=== PATIENT | male | born 1995 | race Two or more races ===

== ENCOUNTER 2019-01-23 04:10 | Emergency (ER) | payer SELFPAY ==
[~2019-01-23] VITALS: Ht 170.2 cm; Wt 81.6 kg
[2019-01-23 05:54] LABS: Basophils # (auto) 0.1 uL; Basophils % (auto) 0.7 % (0.0-2.0); Eosinophils # (auto) 1.3 uL; Eosinophils % (auto) 9.3 % (0.0-7.0); Hematocrit 49.1 % (41.0-53.0); Hemoglobin 16.4 g/dL (13.5-17.5); Lymphocytes # (auto) 2.6 uL; Lymphocytes % (auto) 18.5 % (10.0-50.0); Mean Corpuscular Hemoglobin 29.6 pg (28.0-32.0); Mean Corpuscular Hgb Conc. 33.4 g/dL (32.0-36.0); Mean Corpuscular Volume 88.6 fL (80.0-100.0); Monocytes # (auto) 1.1 uL; Monocytes % (auto) 7.9 % (0.0-12.0); Neutrophils % (auto) 63.6 % (37.0-80.0); Nucleated Red Blood Cells % 0.1 %; Platelet Count (auto) 256 10^3/uL (140-450); Red Blood Cells 5.55 10^6/uL (4.5-5.90); Red Cell Distribution Width 13.3 % (11.8-14.3); White Blood Cell 14.2 10^3/uL (4.4-10.8)
[2019-01-23 06:09] LABS: Albumin 4.9 g/dL (3.4-5.0); Calcium 10.2 mg/dL (8.5-10.1); Potassium 4.1 mmol/L (3.5-5.1)
[2019-01-23 06:12] LABS: BUN/Creatinine Ratio 25.8; Total Protein 8.3 g/dL (6.4-8.2)
[2019-01-23] MEDS ORDERED: SODIUM CHLORIDE 0.9% 1,000 ML IV ONE (07:16)
[2019-01-23 09:10] LABS: Alcohol, Urine < 3.0 mg/dL (0-5); Amphetamine Screen, Urine POSITIVE (NEGATIVE); Barbiturate Scree,Urine NEGATIVE (NEGATIVE); Benzodiazephine Screen, Urine NEGATIVE (NEGATIVE); Cannabinoid Screen, Urine POSITIVE (NEGATIVE); Cocaine Screen, Urine NEGATIVE (NEGATIVE); Opiate Scree,Urine NEGATIVE (NEGATIVE); Phencyclidine Screen, Urine NEGATIVE (NEGATIVE)
[2019-01-23 09:22] LABS: Urine Bacteria NONE SEEN /hpf (None Seen); Urine Blood Negative /uL (Negative); Urine Mucus FEW (None Seen); Urine Specific Gravity 1.035 (1.001-1.035); Urine WBC 1 /hpf (0 - 3)
[2019-01-23 10:59] VITALS: BP 135/65
== END 2019-01-23 13:06 | disposition home or self-care (01) ==
LOC: ER 04:10
DX: K52.9 Noninfective gastroenteritis and colitis, unspecified (principal); F15.10 Other stimulant abuse, uncomplicated; F12.10 Cannabis abuse, uncomplicated
CPT/HCPCS: 36415; 80053; 80307; 81001; 83735; 85025; 99283; J7030; 96360

== ENCOUNTER 2024-04-07 11:24 | Emergency (ER) | payer MEDICAID, OTHER ==
[~2024-04-07] VITALS: Ht 177.8 cm; Wt 92.7 kg
[2024-04-07] MEDS: KETOROLAC TROMETH 30 MG/ML 1ML VIAL IM ONE (13:25)
[2024-04-07] MEDS ORDERED: IBUP1TAB5 PO (13:37)
[2024-04-07 13:55] VITALS: BP 129/76; PULSE 59; RESP 18; TEMP 98.4; O2SAT 97
== END 2024-04-07 13:58 | disposition home or self-care (01) ==
LOC: ER 11:24
DX: M79.18 Myalgia, other site (principal); M54.9 Dorsalgia, unspecified; M79.642 Pain in left hand; V89.2XXA Person injured in unspecified motor-vehicle accident, traffic, initial encounter; Y93.89 Activity, other specified; Y92.89 Other specified places as the place of occurrence of the external cause; Y99.8 Other external cause status
CPT/HCPCS: 73130; 96372; 99283; J1885